=== PATIENT | male | born 1965 | race Caucasian/White ===

== ENCOUNTER 2017-02-05 15:42 | Emergency (ER) | payer MEDICARE ==
[~2017-02-05] VITALS: Ht 177.8 cm; Wt 80.0 kg
[~2017-02-05 15:42] MED LIST: CEPH500C3 PO; NAPR500 PO
[2017-02-05 15:45] VITALS: BP 121/60; PULSE 86; RESP 16; TEMP 97.8; O2SAT 98
--- NOTE | 2017-02-05 16:27 | PD ---
HPI Chief Complaint: Injury Time Seen by Provider: 16:01 Travel History International Travel<30 days: No Contact w/Intl Traveler<30days: No Traveled to known affect area: No History of Present Illness HPI 51-year-old male presents the emergency department status post laceration to the dorsal left second digit over the MCP joint. Patient states he was using his table saw when his hand slipped and laceration occurred. Patient's pain is minimal. Patient's bleeding is currently controlled. Patient is up-to-date on his tetanus. Function of the left index finger is normal. He denies numbness or tingling. He is allergic to penicillin. PFSH Past Medical History Hx Anticoagulant Therapy: No Depression: Yes Cardiovascular Problems: Yes (CHOL) High Cholesterol: Yes Diabetes: No Diminished Hearing: No Past Surgical History Genitourinary Surgery: Yes (BURST BLADDER IN SURGERY - BLADDER REPAIR 1984) Tonsillectomy: Yes Other Surgery: Yes (FACE ) Social History Alcohol Use: Yes ("WEEKENDS") Tobacco Use: Yes (1PPD) Substance Use: No Allergies-Medications (Allergen,Severity, Reaction): Coded Allergies: penicillin G (Unverified Allergy, Severe, UNKNOWN, 02/05/17) Reported Meds & Prescriptions Reported Meds & Active Scripts Active Ibuprofen 800 Mg Tab 800 Mg PO Q8H PRN Keflex (Cephalexin) 500 Mg Cap 500 Mg PO Q8H 7 Days Reported Fish Oil Maximum Strength 1200 mg (Alton-3 Fatty Acids) 360 Mg-1,200 Mg Cap 1 Tab PO BID Ativan (Lorazepam) 0.5 Mg Tab 0.5 Mg PO BID PRN Omeprazole 40 Mg Cap 40 Mg PO DAILY Atorvastatin (Atorvastatin Calcium) 40 Mg Tab 40 Mg PO HS Morphine ER (Morphine Sulfate) 15 Mg Tab 15 Mg PO BID Robaxin (Methocarbamol) 750 Mg Tab 750 Mg PO QID Review of Systems Except as stated in HPI: all other systems reviewed are Neg General / Constitutional: No: Fever Eyes: No: Visual changes HENT: No: Headaches Cardiovascular: No: Chest Pain or Discomfort Respiratory: No: Shortness of Breath Gastrointestinal: No: Abdominal Pain Genitourinary: No: Dysuria Musculoskeletal: No: Pain Skin: No Rash Neurologic: No: Weakness Psychiatric: No: Depression Endocrine: No: Polydipsia Hematologic/Lymphatic: No: Easy Bruising Physical Exam Narrative GENERAL: Patient appears in no acute distress. SKIN: Warm and dry. Normal color. Normal turgor. Patient has a linear thickness laceration to the proximal left second digit over the MCP joint. Bleeding is controlled. Measurement is 2 cm HEAD: Atraumatic. Normocephalic. EYES: Pupils equal and round. No scleral icterus. No injection or drainage. ENT: No nasal bleeding or discharge. Mucous membranes pink and moist. Airways patent NECK: Trachea midline. Supple. CARDIOVASCULAR: Regular rate and rhythm. RESPIRATORY: No accessory muscle use. Clear to auscultation. Breath sounds equal bilaterally. MUSCULOSKELETAL: Extremities without clubbing, cyanosis, or edema. No obvious deformities. Tendon is visible through the laceration, but does not appear to be lacerated. Patient has full flexion and extension of the left index finger. Neurovascular exam is normal distally. NEUROLOGICAL: Awake and alert. No obvious cranial nerve deficits. Motor grossly within normal limits. Five out of 5 muscle strength in the arms and legs. Normal speech. PSYCHIATRIC: Appropriate mood and affect; insight and judgment normal. Data Data Last Documented VS Vital Signs Date Time Temp Pulse Resp B/P (MAP) Pulse Ox O2 Delivery O2 Flow Rate FiO2 02/05/17 15:45 97.8 86 16 121/60 (80) 98 Orders Orders Hand, Complete (Xyp2lfe) (02/05/17 16:04) Lidocai-Epi 1%-1:100,000 Inj (Xylocaine- (02/05/17 16:30) MDM Medical Decision Making Medical Screen Exam Complete: Yes Emergency Medical Condition: Yes Differential Diagnosis Accidental laceration. Left hand laceration. Possible bony involvement. Narrative Course Patient is up-to-date on his tetanus. X-ray of the left hand is ordered. X-ray shows no bony involvement or foreign body. Per radiologist. Laceration is repaired. Please see procedure note. Patient is placed on Keflex 500 mg 3 times a day 7 days. Patient follow-up here in 2 days for wound check, or sooner if worsening symptoms develop. Sutures should remain in place for 10 days. Wound instructions reviewed. Procedures Procedure Narrative LACERATION LOCATION: Dorsal Left MCP joint of the second digit LENGTH: 27 NUMBER OF STITCHES/CONY: 2 simple interrupted, 4 interrupted vertical mattress REPAIR: The area of the laceration was prepped with Betadine and sterilely draped. The laceration was infiltrated with 2.5 mL 1% lidocaine with epi. The wound was copiously irrigated and explored without evidence of foreign body, tendon injury or neurovascular injury. The wound was closed using 5-0 Prolene. This was a single layer repair. A sterile dressing was applied. The patient was advised to keep the dressing clean and dry. Patient tolerated the procedure well. Diagnosis Primary Impression: Laceration of left hand without complication, including fingers Qualified Codes: S61.412A - Laceration without foreign body of left hand, initial encounter; S61.219A - Laceration without foreign body of unspecified finger without damage to nail, initial encounter Patient Instructions: Care For Your Stitches (DC), Finger Laceration (ED), General Instructions Additional Instructions: Patient is placed on Keflex 500 mg 3 times a day 7 days. Patient follow-up here in 2 days for wound check, or sooner if worsening symptoms develop. Sutures should remain in place for 10 days. Wound instructions reviewed. Med/Other Pt SpecificInfo: Prescription(s) given Scripts Ibuprofen (Ibuprofen) 800 Mg Tab 800 MG PO Q8H Y for Pain/Inflammation, #30 TAB 0 Refills Prov: Emmanuel Mayberry MD 02/05/17 Cephalexin (Keflex) 500 Mg Cap 500 MG PO Q8H for Infection for 7 Days, #21 CAP 0 Refills Prov: Emmanuel Mayberry MD 02/05/17 Disposition: 01 DISCHARGE HOME Condition: Stable Johnnie Acosta Feb 05, 2017 16:27
[2017-02-05] MEDS ORDERED: LIDOCAINE 1%/EPINEPHrine 1:100,000 SOLN 20 ML VIAL INFIL ONE (16:30)
[2017-02-05] MEDS ORDERED: LORA-392 PO (16:34)
[2017-02-05] MEDS ORDERED: ROBA750T PO (16:34)
[2017-02-05] MEDS ORDERED: OMEG120017 PO (16:34)
[2017-02-05] MEDS ORDERED: ATOR40TA16 PO (16:34)
[2017-02-05] MEDS ORDERED: OMEP40CA2 PO (16:34)
[2017-02-05] MEDS ORDERED: MORP1TAB24 PO (16:34)
--- NOTE | 2017-02-05 16:52 | RADRPT ---
EXAM DATE/TIME: 02/05/2017 16:32 [facility] COMPARISON: No previous studies available for comparison. INDICATIONS : Left hand laceration from table saw today MEDICAL HISTORY : None. SURGICAL HISTORY : Spinal surgery ENCOUNTER: Initial ACUITY: 1 day PAIN SCORE: 6/10 LOCATION: Left hand FINDINGS: Three views of the left hand demonstrate no fracture or dislocation. Mineralization is within normal limits and there is no significant arthropathy. No soft tissue abnormality or radiopaque foreign body is identified. CONCLUSION: No radiopaque foreign body is identified. Daniel Hernandez MD on February 05, 2017 at 16:49 Board Certified Radiologist. This report was verified electronically.
[2017-02-05] MEDS ORDERED: CEPH-460 PO (17:16)
[2017-02-05] MEDS ORDERED: IBUP1TAB7 PO (17:16)
[2017-02-05] MEDS ORDERED: CEPHALEXIN MONOHYDRATE 500 MG CAP PO ONE (17:30)
== END 2017-02-05 17:26 | disposition home or self-care (01) ==
LOC: PHEFT 15:42
DX: S61.211A Laceration without foreign body of left index finger without damage to nail, initial encounter (principal); W27.0XXA Contact with workbench tool, initial encounter
CPT/HCPCS: 12001; 73130

== ENCOUNTER 2017-02-16 17:45 | Emergency (ER) | payer MEDICARE ==
[~2017-02-16] VITALS: Ht 168.9 cm; Wt 81.1 kg
[~2017-02-16 17:45] MED LIST changes: +ATOR40TA16 PO; +CEPH-460 PO; -CEPH500C3 PO; +IBUP1TAB7 PO; +LORA-392 PO; +MORP1TAB24 PO; -NAPR500 PO; +OMEG120017 PO; +OMEP40CA2 PO; +ROBA750T PO
[2017-02-16 17:50] VITALS: BP 130/74; PULSE 90; RESP 16; TEMP 98.2; O2SAT 98
--- NOTE | 2017-02-16 18:07 | PD ---
HPI Chief Complaint: Wound/Suture/Staple Re-Check Time Seen by Provider: 17:56 Travel History International Travel<30 days: No Contact w/Intl Traveler<30days: No Traveled to known affect area: No History of Present Illness HPI The patient is a 51-year-old male who presents to the emergency department for suture removal. The patient states he had sutures placed over the second metacarpophalangeal joint 11 days ago after he suffered a laceration to the affected area. The laceration has been healing well, there is a small open area on the radial aspect, but there is been no bleeding or drainage. He has been applying Polysporin and dressings to the affected area. His tetanus shot is up-to-date. He denies any difficulty with flexion or extension affected joint. He denies any swelling or redness around the joint. The patient's currently asymptomatic, alleviated after sutures were placed. PFSH Past Medical History Hx Anticoagulant Therapy: No Depression: Yes Cardiovascular Problems: Yes (CHOL) High Cholesterol: Yes Diabetes: No Diminished Hearing: No GERD: Yes Musculoskeletal: Yes (DDD) Immunizations Current: Yes Past Surgical History Genitourinary Surgery: Yes (BURST BLADDER IN SURGERY - BLADDER REPAIR 1984) Tonsillectomy: Yes Other Surgery: Yes (FACIAL RECONSTRUCTION) Social History Alcohol Use: Yes (occ) Tobacco Use: Yes (1PPD) Substance Use: No Allergies-Medications (Allergen,Severity, Reaction): Coded Allergies: penicillin G (Unverified Allergy, Severe, UNKNOWN, 02/16/17) Reported Meds & Prescriptions Reported Meds & Active Scripts Active Reported Fish Oil Maximum Strength 1200 mg (Jamul-3 Fatty Acids) 360 Mg-1,200 Mg Cap 1 Tab PO BID Omeprazole 40 Mg Cap 40 Mg PO DAILY Atorvastatin (Atorvastatin Calcium) 40 Mg Tab 40 Mg PO HS Morphine ER (Morphine Sulfate) 15 Mg Tab 15 Mg PO BID Robaxin (Methocarbamol) 750 Mg Tab 750 Mg PO QID Review of Systems General / Constitutional: No: Fever Musculoskeletal: No: Limited ROM, Pain Skin: Positive Other (as noted in the history of present illness) Neurologic: No: Paresthesia, Sensory Disturbance Physical Exam Narrative GENERAL: Awake, alert, pleasant 51-year-old male who appears his stated age and is in no acute respiratory distress. SKIN: Focused skin assessment warm/dry. HEAD: Atraumatic. Normocephalic. MUSCULOSKELETAL: The patient has a laceration with sutures in place over the MCP the second digit on the left hand. There is a small open area over the radial aspect which appears old, crusted, no acute bleeding. There is no erythema or edema. He is able fully flex and extend at the MCP, PIP, and DIP. Positive left radial pulse. Capillary refills less than 2 seconds. Full range of motion noted. NEUROLOGICAL: Awake and alert. No obvious cranial nerve deficits. Motor grossly within normal limits. Normal speech. PSYCHIATRIC: Appropriate mood and affect; insight and judgment normal. Data Data Last Documented VS Vital Signs Date Time Temp Pulse Resp B/P (MAP) Pulse Ox O2 Delivery O2 Flow Rate FiO2 02/16/17 17:50 98.2 90 16 130/74 (92) 98 MDM Medical Decision Making Medical Screen Exam Complete: Yes Emergency Medical Condition: Yes Medical Record Reviewed: Yes Differential Diagnosis Differential diagnosis includes suture removal, laceration, contusion, abrasion , infected wound, tendon laceration. Narrative Course The patient's sutures were removed. The patient will Polysporin and a dressing applied. The patient is advised to clean the area twice a day with soap and water, apply antibiotic ointment, monitor for signs of infection and to follow- up with his primary physician. Diagnosis Primary Impression: Visit for suture removal Patient Instructions: General Instructions Additional Instructions: Monitor for signs of infection. Follow-up with your primary physician. Wound care instructions. Return if symptoms worsen or progress. Med/Other Pt SpecificInfo: No Change to Meds Disposition: 01 DISCHARGE HOME Condition: Stable Sebastian Murray MD Feb 16, 2017 18:07
== END 2017-02-16 18:19 | disposition home or self-care (01) ==
LOC: PHEFT 17:45
DX: S61.211D Laceration without foreign body of left index finger without damage to nail, subsequent encounter (principal); X58.XXXD Exposure to other specified factors, subsequent encounter; Z48.02 Encounter for removal of sutures
CPT/HCPCS: 99281

== ENCOUNTER 2017-02-18 22:34 | Emergency (ER) | payer MEDICARE ==
[~2017-02-18] VITALS: Ht 167.6 cm; Wt 80.0 kg
[~2017-02-18 22:34] MED LIST changes: -CEPH-460 PO; -IBUP1TAB7 PO; -LORA-392 PO
[2017-02-18 22:38] VITALS: BP 123/64; PULSE 88; RESP 16; TEMP 97.8; O2SAT 96
--- NOTE | 2017-02-18 23:07 | PD ---
HPI Chief Complaint: Laceration/Skin Injury Time Seen by Provider: 23:02 Travel History International Travel<30 days: No Contact w/Intl Traveler<30days: No Traveled to known affect area: No History of Present Illness HPI 51-year-old male presents to the emergency department for dehiscence of the wound site that was recently evaluated 02/16/17 for suture removal after sutures were originally placed 02/05/17. Patient had a table saw injury the wound was seen at the time of the injury and it was repaired patient was given antibiotic and tetanus status was updated at the time. Patient has done well and hasn't worked in the wound site clean and dry and has apply topical antibiotic. On February 16 patient came in and sutures were removed and patient was able to demonstrate intact range of motion and sensation. Patient was not noted to have any signs of infection. Subsequently today noticed that the wound had opened and dehisced. Patient states he's had no redness no swelling no tenderness and no purulent drainage. Patient's had no ascending erythema no axillary tenderness or lymphadenopathy and no fever. Patient is right-handed. Patient denies other complaints. PFSH Past Medical History Narrative Medical Depression dyslipidemia DDD; bladder surgery facial surgery; tobacco use; nursing notes reviewed Hx Anticoagulant Therapy: No Depression: Yes Cardiovascular Problems: Yes (CHOL) High Cholesterol: Yes Diabetes: No Diminished Hearing: No GERD: Yes Musculoskeletal: Yes (DDD) Immunizations Current: Yes Tetanus Vaccination: < 5 Years Influenza Vaccination: No Past Surgical History Genitourinary Surgery: Yes (BURST BLADDER IN SURGERY - BLADDER REPAIR 1984) Tonsillectomy: Yes Other Surgery: Yes (FACIAL RECONSTRUCTION) Social History Alcohol Use: Yes (occ) Tobacco Use: Yes (1PPD) Substance Use: No Allergies-Medications (Allergen,Severity, Reaction): Coded Allergies: penicillin G (Unverified Allergy, Severe, UNKNOWN, 02/18/17) Reported Meds & Prescriptions Reported Meds & Active Scripts Active Reported Fish Oil Maximum Strength 1200 mg ([place]-3 Fatty Acids) 360 Mg-1,200 Mg Cap 1 Tab PO BID Omeprazole 40 Mg Cap 40 Mg PO DAILY Atorvastatin (Atorvastatin Calcium) 40 Mg Tab 40 Mg PO HS Morphine ER (Morphine Sulfate) 15 Mg Tab 15 Mg PO BID Robaxin (Methocarbamol) 750 Mg Tab 750 Mg PO QID Review of Systems Except as stated in HPI: all other systems reviewed are Neg Physical Exam Narrative GENERAL: Well-developed well-nourished male in no acute distress no respiratory distress SKIN: Warm and dry. MUSCULOSKELETAL: No cyanosis, or edema. Attention left hand specifically laceration site at the dorsum of the second MCP which has dehisced without redness induration or purulent drainage. Second digit is otherwise neurovascularly tendon intact with intact flexion extension at the DIP PIP and MCP as well as the rest with intact thumb apposition/pincer to grasp; capillary refill is brisk and less than 2 seconds. Data Data Last Documented VS Vital Signs Date Time Temp Pulse Resp B/P (MAP) Pulse Ox O2 Delivery O2 Flow Rate FiO2 02/18/17 22:38 97.8 88 16 123/64 (83) 96 MDM Medical Decision Making Medical Screen Exam Complete: Yes Emergency Medical Condition: Yes Medical Record Reviewed: Yes Differential Diagnosis Wound dehiscence, neurovascular tendon injury, wound infection Narrative Course 51-year-old male presents to the emergency department with a dehisced laceration repair of the dorsum of the left hand at the second MCP. Patient had sutures removed 2 days ago 02/16/17 after sutures were originally placed 03/12. Today patient noticed that the wound was open. One site has dehisced. There is no evidence of infection no redness no induration no purulent drainage. Patient has intact sensation as well as intact range of motion of the digit. One site is approximated with Steri-Strips and splint applied patient will be referred to hand surgeon as well and will need to close by secondary intention. Diagnosis Primary Impression: Dehiscence of laceration repair Qualified Codes: T81.33XA - Disruption of traumatic injury wound repair, initial encounter Referrals: Hand Surgeon 2 days call office on Monday for appointment; nursing education specialist service hand surgeon Dr Yi Patient Instructions: General Instructions Additional Instructions: Wear splint Keep wound site clean and dry Follow-up with hand surgeon Return to the emergency department for any concerns or change in condition Disposition: 01 DISCHARGE HOME Condition: Stable Fidelia Andre MD Feb 18, 2017 23:07
== END 2017-02-18 23:56 | disposition home or self-care (01) ==
LOC: PHED 22:34
DX: T81.33XA Disruption of traumatic injury wound repair, initial encounter (principal); E78.00 Pure hypercholesterolemia, unspecified; F32.9 Major depressive disorder, single episode, unspecified; F17.210 Nicotine dependence, cigarettes, uncomplicated
CPT/HCPCS: 99282

== ENCOUNTER 2017-08-19 23:38 | Emergency (ER) | payer MEDICARE ==
[~2017-08-19] VITALS: Ht 170.2 cm; Wt 76.0 kg
[2017-08-20 00:01] VITALS: BP 140/64; PULSE 96; RESP 18; TEMP 98.3; O2SAT 96
[2017-08-20] MEDS ORDERED: TRAM50TA PO (01:15)
[2017-08-20] MEDS ORDERED: oxyCODONE/ACETAMINOPHEN 5 MG/325 MG TAB PO ONE (01:15)
[2017-08-20] MEDS ORDERED: CLINDAMYCIN 150 MG CAP PO ONE (01:15)
[2017-08-20] MEDS ORDERED: CLIN150C14 PO (01:15)
[2017-08-20] MEDS ORDERED: IBUPROFEN 800 MG TAB PO ONE (01:15)
--- NOTE | 2017-08-20 01:17 | PD ---
HPI Chief Complaint: Oral / Dental Pain or Problem Time Seen by Provider: 01:12 Travel History International Travel<30 days: No Contact w/Intl Traveler<30days: No Traveled to known affect area: No History of Present Illness HPI 52-year-old male presents to the emergency department by private transportation for complaint of dental pain 2 days. Patient reports pain is intolerable. Patient has used [id number] ibuprofen without relief. Patient has not yet followed up with a dentist. Use or touching the tooth increases pain nothing alleviates his discomfort. Patient has not tried any Orajel or topical anesthetic. Patient denies chronic conditions such as diabetes. PFSH Past Medical History Narrative Medical High cholesterol GERD; nursing notes reviewed Hx Anticoagulant Therapy: No Depression: Yes Cardiovascular Problems: Yes (CHOL) High Cholesterol: Yes Diabetes: No Diminished Hearing: No GERD: Yes Musculoskeletal: Yes (DDD) Immunizations Current: Yes Tetanus Vaccination: < 5 Years Influenza Vaccination: No Past Surgical History Genitourinary Surgery: Yes (BURST BLADDER IN SURGERY - BLADDER REPAIR 1984) Tonsillectomy: Yes Other Surgery: Yes (FACIAL RECONSTRUCTION) Social History Alcohol Use: Yes (occ) Tobacco Use: Yes (1PPD) Substance Use: No Allergies-Medications (Allergen,Severity, Reaction): Coded Allergies: penicillin G (Unverified Allergy, Severe, UNKNOWN, 08/20/17) Reported Meds & Prescriptions Reported Meds & Active Scripts Active Tramadol (Tramadol HCl) 50 Mg Tab 50 Mg PO Q6H PRN Clindamycin (Clindamycin HCl) 150 Mg Cap 300 Mg PO Q6H 7 Days Reported Kerens 3 1200 mg (Kerens-3 Fatty Acids) 684 Mg-1,200 Mg Cap Marixa Allergy (Fexofenadine HCl) 180 Mg Tab 180 Mg PO DAILY Omeprazole 40 Mg Cap 40 Mg PO DAILY Atorvastatin (Atorvastatin Calcium) 40 Mg Tab 40 Mg PO HS Review of Systems Except as stated in HPI: all other systems reviewed are Neg Physical Exam Narrative GENERAL: Well-developed well-nourished male no acute distress no respiratory distress SKIN: Warm and dry. HEAD: Normocephalic. EYES: No scleral icterus. No injection or drainage. ENT: Mucous membranes moist airways patent multiple dental caries #29 to the significant decay and small fracture and focal gingival edema nonfluctuant NECK: Supple, trachea midline. No JVD or lymphadenopathy. CARDIOVASCULAR: Regular rate and rhythm without murmurs, gallops, or rubs. RESPIRATORY: Breath sounds equal bilaterally. No accessory muscle use. GASTROINTESTINAL: Abdomen soft, non-tender, nondistended. Data Data Last Documented VS Vital Signs Date Time Temp Pulse Resp B/P (MAP) Pulse Ox O2 Delivery O2 Flow Rate FiO2 08/20/17 01:48 18 08/20/17 01:46 88 97 08/20/17 00:01 98.3 140/64 (89) Orders Orders Clindamycin (Cleocin) (08/20/17 01:15) Ibuprofen (Motrin) (08/20/17 01:15) Oxycodone-Acetamin 5-325 Mg (Percocet (08/20/17 01:15) Ed Discharge Order (08/20/17 01:17) [facility] Medical Decision Making Medical Screen Exam Complete: Yes Emergency Medical Condition: Yes Medical Record Reviewed: Yes Differential Diagnosis Dental abscess dental fracture dental caries Narrative Course Patient given first dose of antibiotic in the emergency department along with Motrin 800 mg p.o. and Percocet 07/3250 dose will be discharged with prescription for clindamycin as well as tramadol and encouraged to follow-up with dentist as an outpatient Diagnosis Primary Impression: Dental decay Additional Impression: Dental abscess Referrals: Dentist 3 days Patient Instructions: Narcotic given in the ED Additional Instructions: Use [id number] ibuprofen 800 mg as often as every 8 hours as needed for pain Associates inflammation Take pain medication as prescribed as needed for pain greater than 5/10 intensity Follow-up with dentist Complete course of antibiotic as prescribed Apply Anbesol or Orajel to soft tissue of the mouth to affected tooth. May use dental paraffin for symptom relief Return to the emergency department for any concerns or change in condition Med/Other Pt SpecificInfo: Prescription(s) given Scripts Tramadol (Tramadol) 50 Mg Tab 50 MG PO Q6H Y for PAIN, #10 TAB 0 Refills Prov: Fidelia Andre MD 08/20/17 Clindamycin (Clindamycin) 150 Mg Cap 300 MG PO Q6H for Infection for 7 Days, #56 CAP 0 Refills Prov: Fidelia Andre MD 08/20/17 Disposition: 01 DISCHARGE HOME Condition: Stable Fidelia Andre MD August 20, 2017 01:17
[2017-08-20] MEDS ORDERED: OMEG12002 (01:21)
[2017-08-20] MEDS ORDERED: FEXO15TA PO (01:21)
[2017-08-20 01:48] VITALS: RESP 18
== END 2017-08-20 01:47 | disposition home or self-care (01) ==
LOC: PHED 23:38
DX: K02.9 Dental caries, unspecified (principal); K04.7 Periapical abscess without sinus; E78.00 Pure hypercholesterolemia, unspecified; F32.9 Major depressive disorder, single episode, unspecified; K21.9 Gastro-esophageal reflux disease without esophagitis; F17.200 Nicotine dependence, unspecified, uncomplicated
CPT/HCPCS: 99283